=== PATIENT | female | born 2000 | race Caucasian/White ===

== ENCOUNTER 2024-02-20 02:04 | Emergency (ER) | payer OTHER, SELFPAY ==
[2024-02-20 02:08] VITALS: BP 126/87; PULSE 73; TEMP 37.1; O2SAT 100; BMI 23.0
--- NOTE | 2024-02-20 02:25 | ED_ITS ---
HPI - Eye Problem General Chief complaint: Eye Problems Stated complaint: L EYE PAIN Time Seen by Provider: 02/20/24 02:22 Source: patient Mode of arrival: walk-in Limitations: no limitations History of Present Illness HPI Narrative: states at work hot piece of pie struck her left upper eyelid. States she now feels like there is a film over her eye. Denies eye pain or headache Related Data Allergies Allergy/AdvReac Type Severity Reaction Status Date / Time guaifenesin Allergy Intermediate hive Verified 02/20/24 02:13 Review of Systems 2 ROS0 Status of ROS 10 or more systems reviewed and unremark able except as noted in history and below Exam Constitutional Vital Signs, click to edit/add: Last Vital Signs Temp 98.7 F 02/20/24 02:08 Pulse 73 02/20/24 02:08 Resp 18 02/20/24 02:08 BP 126/87 02/20/24 02:08 Pulse Ox 100 02/20/24 02:08 O2 Del Method Room Air 02/20/24 02:08 Common normals: no apparent distress, average body habitus, oriented x3, no limitations, healthy appearing, alert and well nourished [facility] Common normals: normocephalic and head/scalp atraumatic Eye Common normals: PERRL, EOMs intact bilaterally and conjunctivae normal Eye images: 2 1. several small 1-2mm burn site medial aspect of left upper eyelid Respiratory Common normals: normal respiratory effort, no retractions and no use of accessory muscles Cardio Common normals: regular rate, regular rhythm and S1 normal heart sound Extremity Common normals: normal to inspection and full ROM Neuro Common normals: oriented x3, CN's II-XII intact bilaterally, moves all extremities and no focal motor deficits Psych Appearance: grossly normal Course Vital Signs Vital signs: Vital Signs Temperature 98.7 F 02/20/24 02:08 Pulse Rate 73 02/20/24 02:08 Respiratory Rate 18 02/20/24 02:08 Blood Pressure 126/87 02/20/24 02:08 Pulse Oximetry 100 02/20/24 02:08 Oxygen Delivery Method Room Air 02/20/24 02:08 Temperature 98.7 F 02/20/24 02:08 Pulse Rate 73 02/20/24 02:08 Respiratory Rate 18 02/20/24 02:08 Blood Pressure 126/87 02/20/24 02:08 Pulse Oximetry 100 02/20/24 02:08 Oxygen Delivery Method Room Air 02/20/24 02:08 MDM - Eye Problem MDM Narrative Medical decision making narrative: patient presents complaining of burning her left upper eyelid at work. States hot pie spattered onto her left upper eyelid. She states she can see via the left eye but feels like there is a film over her vision. Her left conjunctiva is perfectly normal in appearance. No signs of irritation. VA OS 20/60 and VA OD 20/40 patient informed I do not see any evidence of burn of the left eye. She is advised to follow up with ophthalmology Discharge Plan Discharge Stand Alone Forms: Portal Instructions Chief Complaint: Eye Problems Clinical Impression: Acute left eye pain Patient Disposition: Home, Self-Care Print Language: [place]ijani Instructions: Eye Pain (ED) Additional Instructions: follow up with eye doctor tomorrow for recheck Referrals: Physician,Non-Staff, MD [Primary Care Provider] - 1 week Discharge Date/Time: 02/20/24 03:16
--- NOTE | 2024-02-20 02:39 | PC.NURSE ---
patient had hot liquid from pie splash onto left eyelid, unknown iff it went in eye. Patient has small burn rangel to eyelid. no rangel noted to sclera. Visual acuity checked. right eye 20/40. left eye 20/60
== END 2024-02-20 03:16 | disposition home or self-care (01) ==
PROVIDERS: Emergency Provider Internal Medicine
DX: H57.12 Ocular pain, left eye (principal)
CPT/HCPCS: 99283